=== PATIENT | female | born 1960 | race Caucasian/White ===

== ENCOUNTER 2020-03-26 16:40 | Emergency (ER) | payer OTHER, SELFPAY ==
[2020-03-26 16:55] VITALS: BP 144/73; PULSE 58; RESP 16; TEMP 37.4; O2SAT 95
--- NOTE | 2020-03-26 17:05 | ED.DENTAL ---
HPI - Dental/Oral General Chief complaint: Dental/Oral Stated complaint: right jaw pain Time Seen by Provider: 03/26/20 16:58 Source: patient and RN notes reviewed Mode of arrival: ambulatory Limitations: no limitations History of Present Illness HPI Narrative: Patient presents today with right lower dental pain and swelling x2 days. States she noticed a knot yesterday on her lower gumline that she became concerned about. This tooth was previously broken. She has an appointment on April 19 to have it extracted. Denies fever, chills or sweats, shortness of breath, difficulty swallowing. No recent antibiotic use. Patient has A. fib and is currently taking Coumadin. MD Complaint: tooth pain Related Data Home Medications Medication Instructions Recorded Confirmed amlodipine 10 mg PO DAILY 03/26/20 03/26/20 calcium carbonate-mag oxide 1 tablet PO DAILY 03/26/20 03/26/20 ezetimibe 10 mg PO DAILY 03/26/20 03/26/20 furosemide 20 mg PO DAILY 03/26/20 03/26/20 glipizide 5 mg PO BID 03/26/20 03/26/20 losartan 25 mg PO DAILY 03/26/20 03/26/20 ropinirole 1 mg PO BID 03/26/20 03/26/20 simvastatin 80 mg PO HS 03/26/20 03/26/20 trazodone 150 mg PO HS 03/26/20 03/26/20 warfarin See Rx Instructions .ROUTE .COMPLEX 03/26/20 03/26/20 Allergies Allergy/AdvReac Type Severity Reaction Status Date / Time No Known Allergies Allergy Verified 03/26/20 16:43 Review of Systems Review of Systems: Narrative: CONSTITUTIONAL: Denies body aches, fever, chills, or sweats. EYES: Denies visual changes, redness, or discharge. ENT: Denies rhinorrhea, congestion, sore throat, or otalgia.+ Dental pain CARDIOVASCULAR: Denies chest pain, palpitations, or edema. RESPIRATORY: Denies cough or dyspnea. GASTROINTESTINAL: Denies abdominal pain, nausea, vomiting, or diarrhea. GENITOURINARY: Denies dysuria or hematuria. SKIN: Denies rash, itching, or wounds. MUSCULOSKELETAL: Denies back pain, joint pain, or myalgia. NEUROLOGIC: Denies headache, numbness, tingling, or weakness. PSYCH: Denies depression or anxiety. PMFSH Past Medical History Medical History (Updated 03/26/20 @ 17:29 by Jojo Kaur, [facility], ) A-fib Diabetes Hypercholesterolemia Hypertension Peripheral neuropathy Social History Social History Gender identity (if verbalized by the patient): Female Comments At time of signature, I have reviewed and agree with nursing past medical, surgical, social and family history unless otherwise noted. Please see nursing chart for further information. There is no relevant family history pertinent to the presenting complaint Exam Narrative: Exam Narrative: GENERAL: Well-appearing, well-nourished, and in no acute distress. HEAD: Normocephalic, atraumatic. EYES: EOMI. No redness or drainage. Conjunctivae normal. ENT: Mucous membranes pink and moist. Throat normal. Uvula midline. Tooth #29 is fractured with most of the posterior half missing. Gums are somewhat receded with plaque buildup. No obvious periapical abscess noted. Tenderness to the adjacent gumline. No facial swelling noted. NECK: Normal AROM. Supple. No lymphadenopathy. CHEST: No respiratory distress. Clear to auscultation. HEART: Regular rate and rhythm. No murmur appreciated. Normal peripheral pulses. EXTREMITIES: Normal range of motion. No edema. SKIN: Warm, dry, no rash. Capillary refill normal. Normal skin turgor. NEURO: No focal deficits. Alert and oriented x3. Gait steady. PSYCH: Normal affect. No signs of depression or anxiety. Course Vital Signs Vital signs: Vital Signs Temperature 99.4 F 03/26/20 16:55 Pulse Rate 58 L 03/26/20 16:55 Respiratory Rate 16 03/26/20 16:55 Blood Pressure 144/73 H 03/26/20 16:55 Pulse Oximetry 95 03/26/20 16:55 Temperature 99.4 F 03/26/20 16:55 Pulse Rate 58 L 03/26/20 16:55 Respiratory Rate 16 03/26/20 16:55 Blood Pressure 144/73 H 03/26/20 16:55 Pulse Oximetry 95 03/26/20 16:55 Revi
== END 2020-03-26 17:34 | disposition home or self-care (01) ==
PROVIDERS: Emergency Provider Nurse Practitioner; PCP Family Medicine
DX: K04.7 Periapical abscess without sinus (principal); I48.91 Unspecified atrial fibrillation; E78.00 Pure hypercholesterolemia, unspecified; I10 Essential (primary) hypertension; E11.42 Type 2 diabetes mellitus with diabetic polyneuropathy; Z79.01 Long term (current) use of anticoagulants
CPT/HCPCS: 99213; G0463

== ENCOUNTER 2020-05-06 11:42 | Emergency (ER) | payer OTHER, SELFPAY ==
--- NOTE | 2020-05-06 11:55 | ED.GENADULT ---
HPI - General Adult General Chief complaint: Dental/Oral Stated complaint: tooth pain Time Seen by Provider: 05/06/20 11:55 Source: patient Mode of arrival: ambulatory Limitations: no limitations History of Present Illness HPI narrative: 59-year-old female patient presents to the [facility] with complaints of right-sided dental pain for the past 2 days. Patient states she has been dealing with this on again off again dental infection for the past couple months. Patient is here states she was seen here last time was sent to the ER in which she was discharged home with antibiotics and some tramadol for pain. Patient states she has made dental appointments for follow-up however they continue to get canceled her next dental appointment is scheduled for May 21. Denies any fevers, body aches or chills. Denies any trouble swallowing or drooling. Denies any chest pain or shortness of breath. Patient denies taking anything for pain the last 2 days since it has started. Related Data Home Medications Medication Instructions Recorded Confirmed amlodipine 10 mg PO DAILY 03/26/20 05/06/20 glipizide 5 mg PO BID 03/26/20 05/06/20 ropinirole 1 mg PO BID 03/26/20 05/06/20 simvastatin 80 mg PO HS 03/26/20 05/06/20 trazodone 150 mg PO HS 03/26/20 05/06/20 warfarin See Rx Instructions .ROUTE .COMPLEX 03/26/20 05/06/20 magnesium oxide [MagOx] 1 mg PO DAILY 05/06/20 05/06/20 Allergies Allergy/AdvReac Type Severity Reaction Status Date / Time No Known Allergies Allergy Verified 05/06/20 12:06 Review of Systems Review of Systems: Narrative: CONSTITUTIONAL: Denies fever, chills, or sweats. EYES: Denies visual changes, redness, or discharge. ENT: Denies rhinorrhea, congestion, sore throat, or otalgia. Positive right-sided dental pain x2 days CARDIOVASCULAR: Denies chest pain, palpitations, or edema. RESPIRATORY: Denies cough or dyspnea. GASTROINTESTINAL: Denies abdominal pain, nausea, vomiting, or diarrhea. GENITOURINARY: Denies dysuria or hematuria. SKIN: Denies rash or itching. MUSCULOSKELETAL: Denies back pain, joint pain, or myalgia. NEUROLOGIC: Denies headache, numbness, or weakness. PSYCHIATRIC: Denies anxiety or depression. [facility] Past Medical History Medical History A-fib Diabetes Hypercholesterolemia Hypertension Peripheral neuropathy Social History Social History Gender identity (if verbalized by the patient): Female Comments At the time of my signature I agree with nursing past medical history, surgical, social, and family history. There is no relevant family history pertinent to the presenting complaint. Exam Narrative: Exam Narrative: GENERAL: Well-appearing, well-nourished, and in no acute distress. HEAD: Normocephalic, atraumatic. EYES: PERRLA and EOMI. ENT: Nares clear, no rhinorrhea or epistaxis. Mucous membranes moist. Posterior pharynx no erythema, tonsillar joint, exudates or lesions present. Patient does have some erythema and swelling noted to the right cheek area along with palpitation of a possible abscess in the cheek. Unable to visualize a an oral cavity. NECK: Supple. No lymphadenopathy CHEST: Clear to auscultation. No respiratory distress. HEART: Regular rate and rhythm. No murmur heard. Normal peripheral pulses. ABDOMEN: Soft, nontender, nondistended, normal active bowel sounds. EXTREMITIES: Normal range of motion. No edema. SKIN: Warm, dry, no rash. NEURO: No focal deficits. Alert and oriented x3. Course Vital Signs Vital signs: Vital Signs Temperature 36.4 C 05/06/20 11:59 Pulse Rate 54 L 05/06/20 11:59 Respiratory Rate 16 05/06/20 11:59 Blood Pressure 143/78 H 05/06/20 11:59 Pulse Oximetry 100 05/06/20 11:59 Temperature 36.4 C 05/06/20 11:59 Pulse Rate 54 L 05/06/20 11:59 Respiratory Rate 16 05/06/20 11:59 Blood Pressure 143/78 H 05/06/20 11:59
[2020-05-06 11:59] VITALS: BP 143/78; PULSE 54; RESP 16; TEMP 36.4; O2SAT 100
== END 2020-05-06 12:15 | disposition home or self-care (01) ==
PROVIDERS: Emergency Provider Nurse Practitioner Family; PCP Family Medicine
DX: K04.7 Periapical abscess without sinus (principal); I48.91 Unspecified atrial fibrillation; E78.00 Pure hypercholesterolemia, unspecified; I10 Essential (primary) hypertension; E11.42 Type 2 diabetes mellitus with diabetic polyneuropathy
CPT/HCPCS: 99213; G0463

== ENCOUNTER 2020-11-18 14:25 | Emergency (ER) | payer OTHER, SELFPAY ==
--- NOTE | 2020-11-18 14:33 | ED.EXTPRO ---
HPI - Extremity Problem General Chief complaint: Extremity Problem,Nontraumatic Stated complaint: Left ankle Pain Time Seen by Provider: 11/18/20 14:35 Source: patient and RN notes reviewed Mode of arrival: ambulatory Limitations: no limitations History of Present Illness HPI Narrative: 60-year-old female with history of neuropathy presents with concern for 2 days of lower left lateral leg cramping and pain. She denies injury, trauma. Denies redness, warmth, swelling. 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 Reports she is used warm baths, Biofreeze with little relief. Reports she takes amitriptyline and trazodone for chronic lower extremity pain, those medicines have not been helping. MD Complaint: extremity pain Related Data Home Medications Medication Instructions Recorded Confirmed amlodipine 10 mg PO DAILY 03/26/20 11/18/20 glipizide 5 mg PO BID 03/26/20 11/18/20 ropinirole 1 mg PO BID 03/26/20 11/18/20 simvastatin 80 mg PO HS 03/26/20 11/18/20 trazodone 150 mg PO HS 03/26/20 11/18/20 warfarin See Rx Instructions .ROUTE .COMPLEX 03/26/20 11/18/20 magnesium oxide [MagOx] 1 mg PO DAILY 05/06/20 11/18/20 amitriptyline 25 mg PO HS 11/18/20 11/18/20 furosemide 20 mg PO DAILY 11/18/20 11/18/20 losartan 25 mg PO DAILY 11/18/20 11/18/20 Allergies Allergy/AdvReac Type Severity Reaction Status Date / Time No Known Allergies Allergy Verified 05/06/20 12:06 Review of Systems Review of Systems: Narrative: CONSTITUTIONAL: Denies malaise, chills, sweats, or fever. CARDIOVASCULAR: Denies chest pain, palpitations, or edema. RESPIRATORY: Denies cough or dyspnea. SKIN: Denies lacerations, abrasions, warmth, redness, swelling of the left lower leg MUSCULOSKELETAL: Reports left lower lateral leg cramping, lateral pain NEUROLOGIC: Denies numbness, weakness All systems reviewed & are unremarkable except as noted in HPI and below PMFSH Past Medical History Medical History (Updated 11/18/20 @ 14:45 by Анна Rizo NP) A-fib Diabetes Hypercholesterolemia Hypertension Peripheral neuropathy Social History Social History Gender identity (if verbalized by the patient): Female Comments At time of signature, agree with nursing past medical, surgical, social and family history. There is no relevant family history pertinent to the presenting complaint Exam Narrative: Exam Narrative: GENERAL: Well-appearing, well-nourished, and in no acute distress. HEAD: Normocephalic, atraumatic. EYES: PERRLA, conjunctivae clear NECK: Supple. CHEST: Speaks in full sentences. No respiratory distress. HEART: Regular rate and rhythm. Normal and equal peripheral pulses. EXTREMITIES: Left lower leg, ankle have normal strength and sensation, normal range of motion. No edema, erythema, induration, warmth, or ecchymosis. 5/5 strength with knee and ankle flexion and extension. Normal sensation with sensitivity to light touch and pain. Mild lateral tenderness with palpable tight muscle. No open wounds, no skin tenting, no devitalized tissue or atrophy, no trophic changes, no obvious deformity, alignment normal, nearby joints and structures intact. Distal pulses palpable and equal bilaterally, skin warm, dry, pink. Capillary refill less than 3 seconds. SKIN: Warm, dry, no rash. NEURO: Alert and oriented x3. PSYCH: Normal mood and affect Course Course Emergency Course: Patient is aware of diagnosis, understands and agrees to treatment plan. Anticipatory guidance given. Patient agrees to follow-up as directed and is aware of reasons to seek care at the emergency department. Portions of this record may have been created with voice recognition software Vital Signs Vital signs: Vital Signs Temperature 98.5 F 11/18/20 14:36 Pulse Rate 65 11/18/20 14:36 Respiratory Rate 12 11/18/20 14:36 Blood Pressure 138/74 11/18/20 14:36 Pulse Oximetry 1
[2020-11-18 14:36] VITALS: BP 138/74; PULSE 65; RESP 12; TEMP 36.9; O2SAT 100
== END 2020-11-18 14:55 | disposition home or self-care (01) ==
PROVIDERS: Emergency Provider Nurse Practitioner; PCP Nurse Practitioner Family
DX: M79.605 Pain in left leg (principal); I48.91 Unspecified atrial fibrillation; E78.00 Pure hypercholesterolemia, unspecified; I10 Essential (primary) hypertension; E11.42 Type 2 diabetes mellitus with diabetic polyneuropathy
CPT/HCPCS: 99213; G0463

== ENCOUNTER 2021-04-21 11:19 | Emergency (ER) | payer OTHER, SELFPAY ==
[2021-04-21 11:31] VITALS: BP 145/74; PULSE 61; RESP 18; TEMP 36.4; O2SAT 100
--- NOTE | 2021-04-21 13:00 | ED.SKABFB ---
HPI - Skin/Abscess/Foreign Bdy General Chief complaint: Skin/Abscess/Foreign Body Stated complaint: Rash Time Seen by Provider: 04/21/21 13:01 Source: patient, RN notes reviewed and old records reviewed Mode of arrival: ambulatory Limitations: no limitations History of Present Illness HPI narrative: 60 year old female who presents to [facility] care with complaints of left lower back pain starting on Wednesday with rash noted from left center of back radiating in linear fashion to left side of abdomen along waistline starting today. Patient reports that she has been taking Tylenol for her discomfort which has helped very minimally, patient is on blood thinner for A-fib and can't take any antiinflammatory medication. Patient denies any fevers, chills or sweats. Patient describes her pain as burning rates it 03/11, states hasn't been able to sleep because of pain. MD complaint: rash Related Data Home Medications Medication Instructions Recorded Confirmed amlodipine 10 mg PO DAILY 03/26/20 04/21/21 glipizide 5 mg PO BID 03/26/20 04/21/21 ropinirole 1 mg PO BID 03/26/20 04/21/21 simvastatin 80 mg PO HS 03/26/20 04/21/21 trazodone 150 mg PO HS 03/26/20 04/21/21 warfarin See Rx Instructions .ROUTE .COMPLEX 03/26/20 04/21/21 magnesium oxide [MagOx] 1 mg PO DAILY 05/06/20 04/21/21 amitriptyline 25 mg PO HS 11/18/20 04/21/21 furosemide 20 mg PO DAILY 11/18/20 04/21/21 losartan 25 mg PO DAILY 11/18/20 04/21/21 ezetimibe 10 mg PO DAILY 04/21/21 04/21/21 Allergies Allergy/AdvReac Type Severity Reaction Status Date / Time No Known Allergies Allergy Verified 04/21/21 12:41 Review of Systems Review of Systems: CONSTITUTIONAL: Denies fever, chills, or sweats. EYES: Denies visual changes, redness, or discharge. ENT: Denies rhinorrhea, congestion, sore throat, or otalgia. CARDIOVASCULAR: Denies chest pain, palpitations, or edema. RESPIRATORY: Denies cough or dyspnea. GASTROINTESTINAL: Denies abdominal pain, nausea, vomiting, or diarrhea. GENITOURINARY: Denies dysuria or hematuria. SKIN: Positive for vesicular rash with burning pain at left back and lateral abdomen along waistline region MUSCULOSKELETAL: Positive left back pain, joint pain, or myalgia. NEUROLOGIC: Denies headache, numbness, or weakness. PSYCHIATRIC: Positive for history of anxiety or depression. All systems reviewed & are unremarkable except as noted in HPI and below PMFSH Past Medical History Medical History (Updated 04/22/21 @ 15:01 by Nicole Vernon NP) A-fib Diabetes GERD (gastroesophageal reflux disease) Hypercholesterolemia Hypertension Peripheral neuropathy Surgical History Surgical History (Updated 04/22/21 @ 14:58 by Nicole Vernon NP) H/O tubal ligation History of inguinal hernia repair Family History Family History (Updated 04/22/21 @ 15:00 by Nicole Vernon NP) Other Cancer Diabetes mellitus Heart disease Hypertension Social History Social History (Updated 04/22/21 @ 14:59 by Nicole Vernon NP) Smoking status: Current every day smoker Substance use: never Living arrangements: with family Gender identity (if verbalized by the patient): Female Comments At time of signature, agree with nursing past medical, surgical, social and family history. There is no relevant family history pertinent to the presenting complaint Exam Narrative: GENERAL: Well-appearing, well-nourished, and in some acute discomfort HEAD: Normocephalic, atraumatic. EYES: PERRLA and EOMI. ENT: Nares clear, no rhinorrhea or epistaxis. Mucous membranes moist.TM's normal with good light reflex, throat pink with no lesions or exudates no tonsil enlargement NECK: Supple.no lymphadenopathy CHEST: Clear to auscultation. No respiratory distress.SAO2 100% on room air HEART: Regular rate and rhythm. No murmur heard. Normal peripheral pulses. ABDOMEN: Soft,tender at lateral left area due to rash, nondistended, normal active bowel sounds, no nausea vomiting or
== END 2021-04-21 13:25 | disposition home or self-care (01) ==
PROVIDERS: Emergency Provider Registered Nurse
DX: B02.9 Zoster without complications (principal); I48.91 Unspecified atrial fibrillation; E11.9 Type 2 diabetes mellitus without complications; I10 Essential (primary) hypertension; F17.200 Nicotine dependence, unspecified, uncomplicated
CPT/HCPCS: 99213; G0463

== ENCOUNTER 2021-09-25 08:54 | Emergency (ER) | payer OTHER, SELFPAY ==
--- NOTE | ~2021-09-25 | XR_ITS ---
EXAMINATION: XR humerus LT DATE: 09/25/2021 09:27 INDICATION: Left humerus pain. Fall. TECHNIQUE: 2 views of left humerus were obtained. COMPARISON: None. FINDINGS: Bone alignment is normal. There is a possible fracture of greater tuberosity of proximal hu merus. There is severe osteoarthritis of acromioclavicular joint and mild osteoarthritis of glenohume ral joint. There is a supracondylar process of distal humerus. IMPRESSION: 1. Possible nondisplaced fracture of greater tuberosity of proximal humerus. Shoulder radiographs are recommended. 2. Polyarticular osteoarthritis. Reviewed, dictated and finalized at location A. CARE MUSIC THERAPIST IMPRESSION: 1. Possible nondisplaced fracture of greater tuberosity of proximal humerus. oulder radiographs are recommended. 2. Polyarticular osteoarthritis.
--- NOTE | ~2021-09-25 | XR_ITS ---
EXAMINATION: XR hip LT min 2V DATE: 09/25/2021 09:27 INDICATION: Left hip pain. Fall. TECHNIQUE: 3 views of left hip were obtained. COMPARISON: None. FINDINGS: Bone alignment is normal. No fracture. There is mild left hip osteoarthritis. IMPRESSION: 1. Mild left hip osteoarthritis. Reviewed, dictated and finalized at location A. D SYSTEMS ARCHITECT
--- NOTE | ~2021-09-25 | XR_ITS ---
XR shoulder LT min 2V 09/25/2021 10:03 Indication: Left arm pain Procedure: 2 views left shoulder Comparison: 09/25/2021 Findings: Possible nondisplaced fracture left greater tuberosity versus osteophytosis from degenerati ve change. There is polyarticular osteoarthritis. Remaining osseous structures and soft tissues are u nremarkable. Surrounding osseous structures and soft tissues are unremarkable. Impression: 1: Possible nondisplaced fracture left greater tuberosity. 2: Polyarticular osteoarthritis. Reviewed, dictated and finalized at location B. EXTINGUISHER MECHANIC Impression: 1: Possible nondisplaced fracture left greater tuberosity. 2: Polyarticular osteoarthritis.
--- NOTE | 2021-09-25 09:00 | ED.FALL ---
HPI - Fall General Chief Complaint: Extremity Injury, Lower Stated Complaint: Fall/ice Time Seen by Provider: 09/25/21 09:02 Source: patient, RN notes reviewed and old records reviewed Mode of arrival: ambulatory Limitations: no limitations History of Present Illness HPI Narrative: 61-year-old female presents to the [facility] with complaints of slipping and falling on ice. Patient states that she was walking at her house when she fell the first time this morning, was taking out trash at work when she fell a second time. Pain to the left lower back and left lateral hip along with pain generalized distal left humerus. No pain to the shoulder, elbow, wrist. No bruising noted. No open wounds. Patient denies any midline tenderness. No loss or retention of bowel or bladder. Drove herself to the [facility]. Denies any head injury. No loss of consciousness. MD complaint: fall Related Data Home Medications Medication Instructions Recorded Confirmed amlodipine 10 mg PO DAILY 03/26/20 09/25/21 glipizide 5 mg PO BID 03/26/20 09/25/21 simvastatin 80 mg PO HS 03/26/20 09/25/21 trazodone 150 mg PO HS 03/26/20 09/25/21 warfarin See Rx Instructions .ROUTE .COMPLEX 03/26/20 09/25/21 magnesium oxide [MagOx] 1 mg PO DAILY 05/06/20 09/25/21 amitriptyline 25 mg PO HS 11/18/20 09/25/21 furosemide 20 mg PO DAILY 11/18/20 09/25/21 losartan 25 mg PO DAILY 11/18/20 09/25/21 ezetimibe 10 mg PO DAILY 04/21/21 09/25/21 Allergies Allergy/AdvReac Type Severity Reaction Status Date / Time No Known Allergies Allergy Verified 09/25/21 09:14 Review of Systems Review of Systems: All systems reviewed & are unremarkable except as noted in HPI and below Constitutional: Constitutional: Reports no additional constitutional complaints, Denies chills and Denies fever(s) Eyes: Eyes: Reports no additional eye complaints and Denies change in vision ENT: Reports system reviewed and no additional complaints, except as documented Cardiovascular: Cardiovascular: Reports no additional cardiovascular complaints and Denies chest pain Respiratory: Respiratory: Reports no additional respiratory complaints, Denies cough and Denies dyspnea Gastrointestinal: Gastrointestinal: Reports no additional gastrointestinal complaints, Denies abdominal pain, Denies nausea and Denies vomiting Genitourinary: Genitourinary: Denies urinary incontinence Musculoskeletal: Musculoskeletal: Reports as per HPI and Reports arthralgias (left lateral hip and general humerus, left) Integumentary/Breasts: Skin/Breast: Reports system reviewed and no additional complaints, except as docu and Denies erythema Neurologic: Reports system reviewed and no additional complaints, except as documented, Denies confusion, Denies vertigo, Denies dizziness, Denies syncope, Denies headache(s), Denies focal weakness, Denies numbness and Denies weakness Psychiatric: Psychiatric: Reports no additional psychiatric complaints Allergic/Immunologic: Allergic/Immunologic: Reports no additional allergic/immunologic complaints [facility] Past Medical History Medical History A-fib Diabetes GERD (gastroesophageal reflux disease) Hypercholesterolemia Hypertension Peripheral neuropathy Surgical History Surgical History H/O tubal ligation History of inguinal hernia repair Family History Family History Other Cancer Diabetes mellitus Heart disease Hypertension Social History Social History Smoking status: Current every day smoker Substance use: never Gender identity (if verbalized by the patient): Female Comments At the time of my signature, I reviewed and agree with the nursing past medical, surgical, social, and family history. There is no relevant family history pertinent to t
[2021-09-25 09:04] VITALS: BP 137/79; PULSE 66; RESP 16; TEMP 36.4; O2SAT 99
[2021-09-25 09:14] VITALS: BP 137/79; PULSE 66; RESP 16; TEMP 36.4; O2SAT 99
== END 2021-09-25 10:47 | disposition home or self-care (01) ==
PROVIDERS: Emergency Provider Nurse Practitioner; PCP Family Medicine
DX: M25.552 Pain in left hip (principal); M54.50 Low back pain, unspecified; S42.255A Nondisplaced fracture of greater tuberosity of left humerus, initial encounter for closed fracture; W19.XXXA Unspecified fall, initial encounter; I48.91 Unspecified atrial fibrillation; K21.9 Gastro-esophageal reflux disease without esophagitis; E78.00 Pure hypercholesterolemia, unspecified; I10 Essential (primary) hypertension; E11.42 Type 2 diabetes mellitus with diabetic polyneuropathy; F17.200 Nicotine dependence, unspecified, uncomplicated
CPT/HCPCS: 73030; 73060; 73502; 99214; A4565; G0463

== ENCOUNTER 2022-04-28 17:42 | Emergency (ER) | payer OTHER, SELFPAY ==
[2022-04-28 17:50] VITALS: BP 151/65; PULSE 68; RESP 16; TEMP 35.6; O2SAT 99
--- NOTE | 2022-04-28 18:23 | ED.SKABFB ---
HPI - Skin/Abscess/Foreign Bdy General Chief complaint: Skin/Abscess/Foreign Body Stated complaint: Rash On Body Time Seen by Provider: 04/28/22 17:55 Source: patient Mode of arrival: ambulatory Limitations: no limitations History of Present Illness HPI narrative: Ms. Abrams is a 61-year-old female patient presenting to the clinic today with complaints of a rash to her anterior chest. She reports that the rash is itchy and tingling. Has a history of shingles in the past and states it feels a lot like shingles she has had in the past. She denies any insect bite or any environmental changes. Related Data Home Medications Medication Instructions Recorded Confirmed amlodipine 10 mg tablet 10 mg PO DAILY 03/26/20 04/28/22 glipizide 5 mg tablet 5 mg PO BID 03/26/20 04/28/22 simvastatin 80 mg tablet 80 mg PO HS 03/26/20 04/28/22 trazodone 150 mg tablet 150 mg PO HS 03/26/20 04/28/22 warfarin 4 mg tablet See Rx Instructions .Route .COMPLEX 03/26/20 04/28/22 magnesium oxide 400 mg (241.3 mg 1 mg PO DAILY 05/06/20 04/28/22 magnesium) tablet (MagOx) amitriptyline 25 mg tablet 25 mg PO HS 11/18/20 04/28/22 furosemide 20 mg tablet 20 mg PO DAILY 11/18/20 04/28/22 losartan 25 mg tablet 25 mg PO DAILY 11/18/20 04/28/22 ezetimibe 10 mg tablet 10 mg PO DAILY 04/21/21 04/28/22 Allergies Allergy/AdvReac Type Severity Reaction Status Date / Time No Known Allergies Allergy Verified 04/28/22 18:01 Review of Systems Review of Systems: Pertinent positives per HPI. Patient denies any fever, chills, headache, visual changes, dizziness, cough, runny nose, sore throat, shortness of breath, chest pain, palpitations, nausea, vomiting, diarrhea, constipation, abdominal pain, or any urinary issues. [facility] Past Medical History Medical History A-fib Diabetes GERD (gastroesophageal reflux disease) Hypercholesterolemia Hypertension Peripheral neuropathy Surgical History Surgical History H/O tubal ligation History of inguinal hernia repair Family History Family History Other Cancer Diabetes mellitus Heart disease Hypertension Social History Social History Smoking status: Never smoker Substance use: never Gender identity (if verbalized by the patient): Female Comments At the time of my signature, I reviewed and agree with the nursing past medical, surgical, social, and family history. There is no relevant family history pertinent to the patient complaint. Exam Narrative: General: Well-developed, well nourished, in no apparent distress Head: Normocephalic, atraumatic. Cardio: Regular rate and rhythm, s1 and s2 normal, no murmur appreciated. Resp: Clear to auscultation bilaterally, no rhonchi, rales, wheezing or rubs. Integumentary: [place], warm, and dry, intact without lesion, blistery looking lesion to the mid upper abdomen and in between the crease of the breast with mild redness surrounding Course Course Emergency Course: Portions of this record may have been created with voice recognition software. Level of Care: Express Care Visit Vital Signs Vital signs: Vital Signs Temperature 35.6 C L 04/28/22 17:50 Pulse Rate 68 04/28/22 17:50 Respiratory Rate 16 04/28/22 17:50 Blood Pressure 151/65 H 04/28/22 17:50 Pulse Oximetry 99 04/28/22 17:50 Oxygen Delivery Room Air 04/28/22 17:50 Temperature 35.6 C L 04/28/22 17:50 Pulse Rate 68 04/28/22 17:50 Respiratory Rate 16 04/28/22 17:50 Blood Pressure 151/65 H 04/28/22 17:50 Pulse Oximetry 99 04/28/22 17:50 Oxygen Delivery Room Air 04/28/22 17:50 Vital signs reviewed MDM - Skin/Abscess/Foreign Bdy MDM Narrative Medical decision making narrative: At the time of visit patient is r
== END 2022-04-28 18:33 | disposition home or self-care (01) ==
PROVIDERS: Emergency Provider Nurse Practitioner Family
DX: B02.9 Zoster without complications (principal); I48.91 Unspecified atrial fibrillation; K21.9 Gastro-esophageal reflux disease without esophagitis; E78.00 Pure hypercholesterolemia, unspecified; I10 Essential (primary) hypertension; E11.42 Type 2 diabetes mellitus with diabetic polyneuropathy
CPT/HCPCS: 99213; G0463

== ENCOUNTER 2023-03-20 14:07 | Emergency (ER) | payer OTHER, SELFPAY ==
--- NOTE | 2023-03-20 14:08 | ED.URI ---
HPI - URI/Sore Throat General Chief Complaint: Upper Respiratory Infection Stated Complaint: Sinus Time Seen by Provider: 03/20/23 14:07 Source: patient Mode of arrival: ambulatory Limitations: no limitations History of Present Illness HPI Narrative: Rema is a 62-year-old female patient presenting to the clinic today with complaints of sinus congestion, headache, ear pain, productive cough with clear phlegm, and clear nasal drainage X3 days. She reports no fever, chills, or body aches. Did COVID test at work and was negative today. Related Data Home Medications Medication Instructions Recorded Confirmed amlodipine 10 mg tablet 5 mg PO DAILY 03/26/20 04/28/22 simvastatin 80 mg tablet 80 mg PO HS 03/26/20 04/28/22 warfarin 4 mg tablet See Rx Instructions .Route .COMPLEX 03/26/20 04/28/22 losartan 25 mg tablet 25 mg PO DAILY 11/18/20 04/28/22 ezetimibe 10 mg tablet 10 mg PO DAILY 04/21/21 04/28/22 warfarin 5 mg tablet mg 03/20/23 03/20/23 Allergies Allergy/AdvReac Type Severity Reaction Status Date / Time No Known Allergies Allergy Verified 03/20/23 14:13 Review of Systems Review of Systems: Pertinent positives per HPI. Patient denies any fever, chills, rash, headache, visual changes, dizziness, cough, runny nose, sore throat, shortness of breath, chest pain, palpitations, nausea, vomiting, diarrhea, constipation, abdominal pain, or any urinary issues. [facility] Past Medical History Medical History A-fib Diabetes GERD (gastroesophageal reflux disease) Hypercholesterolemia Hypertension Peripheral neuropathy Surgical History Surgical History H/O tubal ligation History of inguinal hernia repair Family History Family History Other Cancer Diabetes mellitus Heart disease Hypertension Social History Social History Smoking status: Never smoker Substance use: never Living arrangements: with family Gender identity (if verbalized by the patient): Female Comments At the time of my signature, I reviewed and agree with the nursing past medical, surgical, social, and family history. There is no relevant family history pertinent to the patient complaint. Exam Narrative: General: Well-developed, over weight, in no apparent distress Head: Normocephalic, atraumatic Eyes: Pupils equally round and reactive to light bilaterally, EOM intact, sclera and conjunctive clear, no discharge, lids normal Ears: TMs intact and congested, ear canals clear, no drainage, grossly hearing normal. Nose: Nares patent, clear nasal discharge, no inflammation, no sinus tenderness. Mouth: Oropharynx without lesions or masses, good dentition, MMM. Neck: Supple, trachea midline, no enlargement of anterior or posterior cervical nodes, no thyroid masses or goiter palpable. Cardio: Irregular rate and rhythm, s1 and s2 normal, no murmur appreciated. Resp: Clear to auscultation bilaterally anteriorly and posteriorly, no rhonchi, rales, wheezing or rubs Course Course Emergency Course: Portions of this record may have been created with voice recognition software. Level of Care: Express Care Visit Vital Signs Vital signs: Vital signs reviewed MDM - URI/Sore Throat MDM Narrative Medical decision making narrative: At the time of the patient resting comfortably on exam table. Patient did COVID test at work and was negative today. I suspect patient has URI. Supportive measures were discussed with the patient she voiced understanding discharge instructions. Will send in prescription for some prednisone and some Tessalon Perles. Differential Diagnosis Differential diagnosis: Likely upper respiratory infection, otitis media, sinusitis, viral infection, bronchitis, influenza, pha
[2023-03-20 14:15] VITALS: BP 149/78; PULSE 64; RESP 18; TEMP 36.7; O2SAT 99
== END 2023-03-20 14:26 | disposition home or self-care (01) ==
PROVIDERS: Emergency Provider Nurse Practitioner Family; PCP Family Medicine
DX: J06.9 Acute upper respiratory infection, unspecified (principal); I48.91 Unspecified atrial fibrillation; K21.9 Gastro-esophageal reflux disease without esophagitis; E78.00 Pure hypercholesterolemia, unspecified; I10 Essential (primary) hypertension; E11.42 Type 2 diabetes mellitus with diabetic polyneuropathy; Z79.01 Long term (current) use of anticoagulants
CPT/HCPCS: 99213; G0463

== ENCOUNTER 2024-01-27 17:28 | Emergency (ER) | payer MEDICAID, SELFPAY ==
--- NOTE | 2024-01-27 17:29 | ED.URI ---
HPI - URI/Sore Throat General Chief Complaint: Upper Respiratory Infection Stated Complaint: cough,DIAZ,diarrhea Time Seen by Provider: 01/27/24 17:28 Source: patient Mode of arrival: ambulatory Limitations: no limitations History of Present Illness HPI Narrative: Rema is a 63-year-old female patient presenting to the clinic today with complaints of cough, headache, and diarrhea times 3-4 days. Reports that her symptoms started on Wednesday. Denies any fever, chills, or body aches. Is a current smoker. Denies any shortness of breath or chest pain. States she does have a little touch of diarrhea. Works in a [place] [employer] [place] setting. MD elicited complaint: sore throat and nasal congestion Related Data Home Medications Medication Instructions Recorded Confirmed amlodipine 10 mg tablet 5 mg PO DAILY 03/26/20 01/27/24 simvastatin 80 mg tablet 80 mg PO HS 03/26/20 01/27/24 warfarin 4 mg tablet See Rx Instructions .Route .COMPLEX 03/26/20 01/27/24 losartan 25 mg tablet 25 mg PO DAILY 11/18/20 01/27/24 ezetimibe 10 mg tablet 10 mg PO DAILY 04/21/21 01/27/24 warfarin 5 mg tablet 5 mg PO DIRECTED 03/20/23 01/27/24 Allergies Allergy/AdvReac Type Severity Reaction Status Date / Time No Known Allergies Allergy Verified 01/27/24 17:32 Review of Systems Review of Systems: Pertinent positives per HPI. Patient denies any fever, chills, rash, visual changes, dizziness, shortness of breath, chest pain, palpitations, nausea, vomiting, constipation, abdominal pain, or any urinary issues. [facility] Past Medical History Medical History A-fib Diabetes GERD (gastroesophageal reflux disease) Hypercholesterolemia Hypertension Peripheral neuropathy Surgical History Surgical History H/O tubal ligation History of inguinal hernia repair Family History Family History Other Cancer Diabetes mellitus Heart disease Hypertension Social History Social History Smoking status: Never smoker Substance use: never Living arrangements: with family Gender identity (if verbalized by the patient): Female Comments At the time of my signature, I reviewed and agree with the nursing past medical, surgical, social, and family history. There is no relevant family history pertinent to the patient complaint. Exam Narrative: General: Well-developed, well nourished, in no apparent distress Head: Normocephalic, atraumatic Eyes: Pupils equally round and reactive to light bilaterally, EOM intact, sclera and conjunctive clear, no discharge, lids normal Ears: TMs intact and congested, ear canals clear, no drainage, grossly hearing normal. Nose: Nares patent, clear nasal discharge, no inflammation, no sinus tenderness. Mouth: Oral pharynx without lesions or masses, good dentition, MMM. Postnasal drip Neck: Supple, trachea midline, no enlargement of anterior or posterior cervical nodes, no thyroid masses or goiter palpable. Cardio: Regular rate and rhythm, s1 and s2 normal, no murmur appreciated. Resp: Clear to auscultation bilaterally, no rhonchi, rales, wheezing or rubs Course Course Emergency Course: Portions of this record may have been created with voice recognition software. Level of Care: Express Care Visit Vital Signs Vital signs: Vital signs reviewed MDM - URI/Sore Throat MDM Narrative Medical decision making narrative: At the time of visit patient is resting comfortably on the exam table. Patient appears to be nontoxic. Labs: COVID and influenza testing was performed. COVID testing was positive. Influenza testing was negative Plan: I suspect patient has COVID with broncho spasms. Prescription for albuterol inhaler and Tessalon Perles was sent to the pharmacy. Supportive measures
[2024-01-27 17:46] VITALS: BP 183/83; PULSE 57; RESP 20; TEMP 37.1; O2SAT 100
== END 2024-01-27 18:05 | disposition home or self-care (01) ==
PROVIDERS: Emergency Provider Nurse Practitioner Family; PCP Family Medicine
DX: J98.01 Acute bronchospasm (principal); U07.1 COVID-19; I48.91 Unspecified atrial fibrillation; K21.9 Gastro-esophageal reflux disease without esophagitis; E78.00 Pure hypercholesterolemia, unspecified; I10 Essential (primary) hypertension; E11.42 Type 2 diabetes mellitus with diabetic polyneuropathy; Z79.01 Long term (current) use of anticoagulants
CPT/HCPCS: 87426; 87804; 99213; G0463

== ENCOUNTER 2024-04-13 14:44 | Emergency (ER) | payer MEDICAID, SELFPAY ==
--- NOTE | 2024-04-13 14:48 | ED.SKABFB ---
HPI - Skin/Abscess/Foreign Bdy General Chief complaint: Skin/Abscess/Foreign Body Stated complaint: ringworm exp. spots on right arm/leg Time Seen by Provider: 04/13/24 14:48 Source: patient Mode of arrival: ambulatory Limitations: no limitations History of Present Illness HPI narrative: Rema is a 63-year-old female patient presenting to the clinic today with complaints of possible ringworm. Possible ringworm spots on her right arm and leg. Reports her daughter had ringworm couple weeks ago. States the rash itches and mill[place] Related Data Home Medications Medication Instructions Recorded Confirmed amlodipine 10 mg tablet 5 mg PO DAILY 03/26/20 04/13/24 simvastatin 80 mg tablet 80 mg PO HS 03/26/20 04/13/24 warfarin 4 mg tablet See Rx Instructions .Route .COMPLEX 03/26/20 04/13/24 losartan 25 mg tablet 25 mg PO DAILY 11/18/20 04/13/24 ezetimibe 10 mg tablet 10 mg PO DAILY 04/21/21 04/13/24 warfarin 5 mg tablet 5 mg PO DIRECTED 03/20/23 04/13/24 aspirin 81 mg tablet,delayed 81 mg PO DAILY 04/13/24 04/13/24 release clopidogrel 75 mg tablet 75 mg PO DAILY 04/13/24 04/13/24 empagliflozin 10 mg tablet 10 mg PO DAILY 04/13/24 04/13/24 (Jardiance) metoprolol succinate 25 mg 25 mg PO DAILY 04/13/24 04/13/24 tablet,extended release 24 hr rosuvastatin 40 mg tablet 40 mg PO DAILY 04/13/24 04/13/24 Allergies Allergy/AdvReac Type Severity Reaction Status Date / Time No Known Allergies Allergy Verified 04/13/24 14:51 Review of Systems Review of Systems: Pertinent positives per HPI. Patient denies any fever, chills, headache, visual changes, dizziness, cough, runny nose, sore throat, shortness of breath, chest pain, palpitations, nausea, vomiting, diarrhea, constipation, abdominal pain, or any urinary issues. [facility] Past Medical History Medical History A-fib Diabetes GERD (gastroesophageal reflux disease) Hypercholesterolemia Hypertension Peripheral neuropathy Surgical History Surgical History H/O tubal ligation History of inguinal hernia repair Family History Family History Other Cancer Diabetes mellitus Heart disease Hypertension Social History Social History Smoking status: Never smoker Substance use: never Living arrangements: with family Gender identity (if verbalized by the patient): Female Comments At the time of my signature, I reviewed and agree with the nursing past medical, surgical, social, and family history. There is no relevant family history pertinent to the patient complaint. Exam Narrative: General: Well-developed, well nourished, in no apparent distress Head: Normocephalic, atraumatic. Cardio: Regular rate and rhythm, s1 and s2 normal, no murmur appreciated. Resp: Clear to auscultation bilaterally, no rhonchi, rales, wheezing or rubs. Integumentary: [place], warm, and dry, intact without lesion, circular scaly rash with raised borders and central clearing to the posterior right distal upper arm and to the right outer thigh Course Course Emergency Course: Portions of this record may have been created with voice recognition software. Level of Care: Express Care Visit Vital Signs Vital signs: Vital signs reviewed MDM - Skin/Abscess/Foreign Bdy MDM Narrative Medical decision making narrative: At the time of visit patient is resting comfortably on the exam table. Patient appears to be nontoxic. Plan: I suspect patient has to the [facility]. Will send in prescription for nystatin/triamcinolone cream. Supportive measures were discussed with the patient and they voiced understanding discharge instructions and agrees to treatment plan. Return precautions reviewed Differential Diagnosis Differential diagnosis: Likely abscess of s
[2024-04-13 14:57] VITALS: BP 172/93; PULSE 55; RESP 15; TEMP 36.6; O2SAT 98
== END 2024-04-13 15:08 | disposition home or self-care (01) ==
PROVIDERS: Emergency Provider Nurse Practitioner Family; PCP Family Medicine
DX: B35.4 Tinea corporis (principal); I48.91 Unspecified atrial fibrillation; E11.42 Type 2 diabetes mellitus with diabetic polyneuropathy; K21.9 Gastro-esophageal reflux disease without esophagitis; E78.00 Pure hypercholesterolemia, unspecified; I10 Essential (primary) hypertension; Z79.01 Long term (current) use of anticoagulants; Z79.82 Long term (current) use of aspirin
CPT/HCPCS: 99213; G0463

== ENCOUNTER 2024-07-29 12:10 | Emergency (ER) | payer MEDICAID, SELFPAY ==
[2024-07-29 12:31] VITALS: BP 149/85; PULSE 97; RESP 16; TEMP 36.1; O2SAT 98
--- NOTE | 2024-07-29 13:35 | ED.URI ---
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 Patient reports subjective fever, body aches, more tired than normal. Her sister is also sick she reports intermittent wheezing without any shortness of breath. She voices no other concerns or complaints Related Data Home Medications ?Medication ?Instructions ?Recorded ?Confirmed ?Last Taken ?Type amlodipine 10 mg tablet 5 mg PO DAILY 03/26/20 04/13/24 04/21/21 History 10 mg simvastatin 80 mg tablet 80 mg PO HS 03/26/20 04/13/24 04/21/21 History 80 mg warfarin 4 mg tablet See Rx Instructions .Route .COMPLEX 03/26/20 04/13/24 04/21/21 History 0 losartan 25 mg tablet 25 mg PO DAILY 11/18/20 04/13/24 04/21/21 History 25 mg ezetimibe 10 mg tablet 10 mg PO DAILY 04/21/21 04/13/24 04/21/21 History 10 mg warfarin 5 mg tablet 5 mg PO DIRECTED 03/20/23 04/13/24 Unknown History aspirin 81 mg tablet,delayed 81 mg PO DAILY 04/13/24 04/13/24 Unknown History release clopidogrel 75 mg tablet 75 mg PO DAILY 04/13/24 04/13/24 Unknown History empagliflozin 10 mg tablet 10 mg PO DAILY 04/13/24 04/13/24 Unknown History (Jardiance) metoprolol succinate 25 mg 25 mg PO DAILY 04/13/24 04/13/24 Unknown History tablet,extended release 24 hr rosuvastatin 40 mg tablet 40 mg PO DAILY 04/13/24 04/13/24 Unknown History Allergies Allergy/AdvReac Type Severity Reaction Status Date / Time gabapentin AdvReac Severe Other Verified 07/29/24 13:57 Review of Systems Review of Systems: All systems reviewed & are unremarkable except as noted in HPI and below Constitutional: Constitutional: Reports no additional constitutional complaints, Reports body ache(s) and Reports lethargy ENT: Reports system reviewed and no additional complaints, except as documented and Reports nasal congestion Cardiovascular: Cardiovascular: Reports no additional cardiovascular complaints Respiratory: Respiratory: Reports no additional respiratory complaints, Reports chest congestion, Reports cough, Reports excessive phlegm production and Reports wheezing Gastrointestinal: Gastrointestinal: Reports no additional gastrointestinal complaints [facility] Past Medical History Medical History A-fib Diabetes GERD (gastroesophageal reflux disease) Hypercholesterolemia Hypertension Peripheral neuropathy Surgical History Surgical History H/O tubal ligation History of inguinal hernia repair Family History Family History Other Cancer Diabetes mellitus Heart disease Hypertension Social History Social History Smoking status: Never smoker Substance use: never Living arrangements: with family Gender identity (if verbalized by the patient): Female Comments At the time of my signature, I reviewed and agree with the nursing past medical, surgical, social, and family history. There is no relevant family history pertinent to the patient complaint. Exam Const: General: cooperative, no acute distress, alert and awake Orientation/consciousness: oriented to person, oriented to place and oriented to time HENMT: Head: normal to inspection Mouth: Yes moist mucous membranes Resp: Effort & Inspection: normal respiratory effort and able to speak in complete sentences Auscultation: clear to auscultation bilaterally, no crackles, no rales, no rhonchi and wheezes scattered wheezes Cardio: Palpation: normal PMI Rate: regular rate Rhythm: regular rhythm Heart sounds: S1 normal heart sound present and S2 normal heart sound present Neuro: General: oriented to person, oriented to place and oriented to time Cranial nerves: Yes CN's II-XII intact bilaterally Psych: Appearance: grossly normal Thought process: Normal thought process present Insight: Good insight present (Psych) Judgement: Good judgement present (Psych) Course Course Level of Care: Express Care Visit Vital Signs Vital signs: Vital Signs Temperature 97.0 F L 07/29/24 12:31 Pulse Rate 97 07/29/24 12:31 Respiratory Rate 16 07/29/24 12:31 Blood Pressure 149/85 H 12/28/24 12:31 Pulse Oximetry 98 12/28/24 12:31 Oxygen Delivery Room Air 07/29/24 12:31 Temperature 97.0 F L 07/29/24 12:31 Pulse Rate 97 07/29/24 12:31 Respiratory Rate 16 07/29/24 12:31 Blood Pressure 149/85 H 07/29/24 12:31 Pulse Oximetry 98 07/29/24 12:31 Oxygen Delivery Room Air 07/29/24 12:31 Reviewed MDM - URI/Sore Throat MDM Narrative Medical decision making narrative: 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 Negative COVID, negative flu. Symptoms are consistent with atypical pneumonia that is present within the community at this time. Treat with doxycycline, bronchodilators. Discharge instructions reviewed with patient, as well as provided in writing per nursing staff. The instructions also include specific and strict return/GO TO THE ER as well as f/u information. All questions have been answered, and the patient deny any further questions with discharge and discharge plan. Some parts of this dictation were generated by voice recognition software and may contain typographical and/or grammatical inaccuracies. Differential Diagnosis Differential diagnosis: Likely upper respiratory infection, otitis media, sinusitis, viral infection, bronchitis and influenza Medical Records Attestation: I reviewed the patient's medical records. Lab Data Attestation: I reviewed the patient's lab results. Discharge Plan Discharge Clinical Impression: Atypical pneumonia Patient Disposition: Home, Self-Care Condition: Stable Instructions: Antibiotic Form, Community Acquired Pneumonia (ED) Additional Instructions: Take medications as prescribed. Follow with primary care provider. Emergency department for new or worse symptoms Patient Language: Kyrgyz Prescriptions: New doxycycline hyclate 100 mg capsule 100 mg PO BID Qty: 20 0RF albuterol sulfate [Ventolin HFA] 90 mcg/actuation HFA aerosol inhaler 2 puff inhalation QID PRN (Reason: shortness of breath or wheezing) Qty: 8.5 0RF No Action simvastatin 80 mg Tablet 80 mg PO HS amlodipine 10 mg Tablet 5 mg PO DAILY warfarin 4 mg Tablet See Rx Instructions .ROUTE .COMPLEX Rx Instructions: 4 mg losartan 25 mg tablet 25 mg PO DAILY warfarin 5 mg tablet 5 mg PO DIRECTED ezetimibe 10 mg tablet 10 mg PO DAILY clopidogrel 75 mg tablet 75 mg PO DAILY aspirin 81 mg tablet,delayed release (DR/EC) 81 mg PO DAILY metoprolol succinate 25 mg tablet extended release 24 hr 25 mg PO DAILY rosuvastatin 40 mg tablet 40 mg PO DAILY Jardiance 10 mg tablet 10 mg PO DAILY nystatin 100,000 unit/gram cream 1 applic topical BID 14 Days Qty: 30 0RF triamcinolone acetonide 0.1 % cream 1 applic topical BID 14 Days Qty: 30 0RF Follow-up/Referrals: Miranda,Reji Cornelius MD [Primary Care Provider] - 2 Weeks Stand Alone Forms: Work/School Release IP Time of Disposition: 14:06
[2024-07-29 14:20] LABS: EDCOVIDSCREEN Negative (Negative)
[2024-07-29 14:21] LABS: EDINFLUASCREEN Negative (Negative); EDINFLUBSCREEN Negative (Negative)
== END 2024-07-29 14:15 | disposition home or self-care (01) ==
PROVIDERS: Emergency Provider Nurse Practitioner Family; PCP Family Medicine
DX: J18.9 Pneumonia, unspecified organism (principal); Z20.822 Contact with and (suspected) exposure to COVID-19; I48.91 Unspecified atrial fibrillation; I10 Essential (primary) hypertension; E11.42 Type 2 diabetes mellitus with diabetic polyneuropathy; Z79.84 Long term (current) use of oral hypoglycemic drugs; E78.00 Pure hypercholesterolemia, unspecified; K21.9 Gastro-esophageal reflux disease without esophagitis; Z79.01 Long term (current) use of anticoagulants; Z79.82 Long term (current) use of aspirin
CPT/HCPCS: 87426; 87804; 99213; G0463